=== PATIENT | female | born 1985 | race Caucasian/White ===

== ENCOUNTER → 2017-04-16 | Outpatient (CLI) | payer BC ==
[~2017-04-16] MED LIST: CHROMIUM PO; MAGNESIUM HYDROXIDE PO; MULTI VITAMIN1 EACH PO; NORGESTIMATE-E1 EAC1 PO; PROBIOTIC1 EAC1 PO
== END | disposition home or self-care (01) ==
LOC: CLAB 11:30
DX: D64.9 Anemia, unspecified (principal)
CPT/HCPCS: 36415; 36430; 86850; 86900; 86901; 86923; 96372; 96374; J1200; J1940; J3420; P9016; Q0138